=== PATIENT | male | born 1995 | race Hispanic/Latino ===

== ENCOUNTER 2018-04-20 16:50 | Emergency (ER) | payer SELFPAY ==
[2018-04-20] MEDS ORDERED: Dexamethasone 4 mg/ml Vial ONE (18:40)
[2018-04-20 19:45] LABS: Hemoglobin 14.9 g/dL (14.0-18.0); MONO NEGATIVE CONTROL ZONE White (Negative) (White); MONO POSITIVE CONTROL Pink Line (Positive) (PINK/RED); Mean Corpuscular Volume 90.5 fL (78.0-98.0); Mean Platelet Volume 9.9 fL (7.4-10.4); Mononucleosis POSITIVE (NEGATIVE); Platelet Count 174 thou/uL (130-400); RBC Distribution Width 13.7 % (11.5-14.5); Red Blood Cell (RBC) Count 5.13 mill/uL (4.00-5.20); White Blood Cell (WBC) Count 30.5 thou/uL (4.8-10.8)
[2018-04-20 20:03] LABS: ALT (SGPT) 414 U/L (8-55); AST (SGOT) 254 U/L (5-34); Albumin 4.5 g/dL (3.5-5.0); Alkaline Phosphatase 325 U/L (Less than 750); Anion Gap 17 mmol/L (10-20); BUN (Urea Nitrogen) 13 mg/dL (8.9-20.6); Band 2 % (5-11); Bilirubin, Total 0.6 mg/dL (0.2-1.2); Calc. Creatinine Clearance 0 mL/min (70-130); Calcium 9.7 mg/dL (7.8-10.44); Carbon Dioxide 24 mmol/L (22-29); Chloride 99 mmol/L (98-107); Estimated GFR-MDRD 70; Globulin 4.3 g/dL (2.4-3.5); Glucose 88 mg/dL (70-105); Lymphocytes 78 % (28-48); MDiff Complete? YES; Monocytes 9 % (0-4); Neutrophil 2 % (31-61); PLT Morphology Comment Appears Adequate; Potassium 5.3 mmol/L (3.5-5.1); Protein, Total 8.8 g/dL (6.0-8.3); Reactive Lymphocytes 9 % (0-10); Sodium 135 mmol/L (136-145)
[2018-04-20 20:22] LABS: HBSAg Index 0.17 S/CO (0-0.99); Hep B Surf Ag Non-Reactive S/CO (NonReactive)
[2018-04-20 20:25] LABS: Hep C IgG Ab Non-Reactive (NonReactive); Hep C Index 0.26 S/CO (0-0.79)
[2018-04-20 20:26] LABS: Hep A IgM AB Non-Reactive (NonReactive); Hep A IgM S/CO 0.23 S/CO (0-0.79)
[2018-04-20 20:27] LABS: Hepatitis B Core IGM Abs Non-Reactive (NonReactive)
[2018-04-20 20:28] LABS: HIV (1/2) Antibody/Antigen Non-Reactive (NonReactive); HIV 1/2 INDEX 0.12 S/CO (<1.00)
[2018-04-20 20:29] LABS: HBSAB Concentration 27.76 mIU/mL; Hep B Surf AB Reactive (NonReactive)
== END 2018-04-20 20:32 | disposition home or self-care (01) ==
LOC: ERS 16:50
DX: B27.90 Infectious mononucleosis, unspecified without complication (principal); D72.829 Elevated white blood cell count, unspecified
CPT/HCPCS: 36415; 80053; 85025; 86308; 86705; 86706; 86709; 86803; 87081; 87340; 87389; 87430; 99284; J1100